=== PATIENT | female | born 1950 | race Caucasian/White ===

== ENCOUNTER 2017-03-22 14:58 | Emergency (ER) | payer MEDICARE ==
[~2017-03-22] VITALS: Ht 167.6 cm; Wt 77.0 kg
[2017-03-22 15:00] VITALS: BP 131/61; PULSE 108; RESP 15; TEMP 99.6; O2SAT 95
[2017-03-22] MEDS ORDERED: OSEL75 PO (16:19)
[2017-03-22] MEDS ORDERED: BENZ100 PO (16:19)
--- NOTE | 2017-03-22 16:25 | PD ---
HPI Chief Complaint: Cold / Flu Symptoms Time Seen by Provider: 16:12 Travel History International Travel<30 days: No Contact w/Intl Traveler<30days: No Traveled to known affect area: No History of Present Illness HPI 66-year-old female that presents to the ED for evaluation of cold-like symptoms. Patient has had cold like symptoms for 2 days. She comes here with who was diagnosed with influenza in this facility on Thursday. Was started on Tamiflu and feels improved. Patient comes here with same symptoms. Per patient she's been having body aches. Fevers chills and sweats. Productive cough. No chest pain or shortness of breath. No urinary or bowel movement issues. No other medical issues. Eating and drinking okay. No other medical issues at this time. No history of asthma. No smoking. Per patient the body aches are 4 out of 10. Taking OTC meds with some relief. PFSH Past Medical History Diminished Hearing: No Tetanus Vaccination: Unknown Social History Alcohol Use: No Tobacco Use: No Substance Use: No Allergies-Medications (Allergen,Severity, Reaction): Coded Allergies: codeine (Verified Allergy, Severe, 03/22/17) PALPITATIONS latex (Verified Allergy, Severe, Rash, 03/22/17) pseudoephedrine (Verified Allergy, Severe, 03/22/17) PALPITATIONS Reported Meds & Prescriptions Reported Meds & Active Scripts Active Tessalon Perles (Benzonatate) 100 Mg Cap 100 Mg PO TID PRN Tamiflu (Oseltamivir Phosphate) 75 Mg Cap 75 Mg PO BID 5 Days Review of Systems Except as stated in HPI: all other systems reviewed are Neg Physical Exam Narrative GENERAL: Well-nourished, well-developed patient in no apparent distress. SKIN: Warm and dry. HEAD: Atraumatic. Normocephalic. EYES: Pupils equal and round reactive to light and accommodation. No scleral icterus. No injection or drainage. ENT: No nasal bleeding or discharge. Mucous membranes pink and moist. TMs are clear with no sign of infection or perforation. No mastoid tenderness. Ear canals are intact bilaterally. No lymphadenopathy. Nostril mucosa is red and moist with clear mucus noted. No sinus tenderness to palpation noted. Tonsils are not enlarged or swollen. No ulvua Deviation. Tongue is midline. NECK: Trachea midline. No JVD. No meningeal signs noted CARDIOVASCULAR: Regular rate and rhythm. RESPIRATORY: No accessory muscle use. Clear to auscultation. Breath sounds equal bilaterally. GASTROINTESTINAL: Abdomen soft, non-tender, nondistended. Hepatic and splenic margins not palpable. MUSCULOSKELETAL: Extremities without clubbing, cyanosis, or edema. No obvious deformities. NEUROLOGICAL: Awake and alert. No obvious cranial nerve deficits. Motor grossly within normal limits. Five out of 5 muscle strength in the arms and legs. Normal speech. PSYCHIATRIC: Appropriate mood and affect; insight and judgment normal. Data Data Last Documented VS Vital Signs Date Time Temp Pulse Resp B/P (MAP) Pulse Ox O2 Delivery O2 Flow Rate FiO2 03/22/17 15:15 95 Room Air 03/22/17 15:00 99.6 108 15 131/61 (84) Orders Orders Influenzae A/B Antigen (03/22/17 15:17) Ed Discharge Order (03/22/17 16:19) MDM Medical Decision Making Medical Screen Exam Complete: Yes Emergency Medical Condition: Yes Medical Record Reviewed: Yes Interpretation(s) Influenza positive for B Differential Diagnosis Influenza versus cold-like symptoms versus URI Narrative Course 66-year-old female that presents to the ED for evaluation of possible flu. Patient was properly examined and was found to have signs and symptoms consistent with influenza. Flu test was done in triage and was positive. Patient will be given a prescription for Tamiflu and Tessalon Perles. She was told to take [id number] remedies as needed. She was given a voucher to help make her medication more affordable. Follow with PCP. See ED worsening symptoms. Diagnosis Primary Impression: Influenza B Patient Instructions: General Instructions Additional Instructions: Motrin and Tylenol for pain and fever. You can use [id number] antihistamine as well as well as Mucinex as needed for runny nose and congestion. Cough drops for cough as needed. Drink plenty of fluids. Follow-up with PCP. See ED for worsening symptoms. Med/Other Pt SpecificInfo: Prescription(s) given Scripts Benzonatate (Tessalon Perles) 100 Mg Cap 100 MG PO TID Y for COUGH, #20 CAP 0 Refills Prov: Bob Perla MD 03/22/17 Oseltamivir (Tamiflu) 75 Mg Cap 75 MG PO BID for Mgmt Viral Infection for 5 Days, #10 CAP 0 Refills Prov: Bob Perla MD 03/22/17 Disposition: 01 DISCHARGE HOME Condition: Leon Beard Mar 22, 2017 16:25
== END 2017-03-22 16:44 | disposition home or self-care (01) ==
LOC: NEPE 14:58
DX: J10.1 Influenza due to other identified influenza virus with other respiratory manifestations (principal)
CPT/HCPCS: 87804; 99283